=== PATIENT | female | born 1980 | race Caucasian/White ===

== ENCOUNTER 2016-08-26 15:13 | Emergency (ER) | payer MEDICAID ==
--- NOTE | 2016-08-26 16:15 | EDM.PDOC ---
ED HPI Trauma - General Chief Complaint: Lower Extremity Injury/Pain Stated Complaint: RT FOOT AND ANKLE INJURY Time Seen by Provider: 08/26/16 15:40 Source: Reports: Patient History Limitations: Reports: No limitations - History of Present Illness INITIAL COMMENTS - FREE TEXT/NARRATIVE: 36 -year-old female presents for evaluation and treatment of entry to the right ankle. Patient reports that she was mowing the lawn. She states that she fell onto some uneven surface, inverting her right ankle. She states that she was attempting to avoid injury to her right knee. Reports that she recently had hardware placed to the right knee a few weeks ago. She is currently complaining of pain to the right lateral knee, pain to the right lateral ankle and swelling to the right lateral ankle. She has been unable to bear weight on the leg since the incident. She reports some tingling to the leg. Denies any numbness. She's also noticed some swelling to the right lateral ankle. No treatment prior to arrival in the ER. Occurred When: this morning Occurred Where: home Method of Injury: fall Pain/Injury Location: Reports: lower extremity, right Allergies/ADRs: Allergies iodine Allergy (Verified 08/26/16 15:47) Blisters Penicillins Allergy (Verified 08/26/16 15:47) Hives Sulfa (Sulfonamide Antibiotics) Allergy (Verified 08/26/16 15:47) Rash codeine Adverse Reaction (Verified 08/26/16 15:47) Nausea morphine Adverse Reaction (Verified 08/26/16 15:47) Hallucinations Home Medications: Ambulatory Orders Cyclobenzaprine [Flexeril] 10 mg PO BEDTIME 05/15/16 [Confirmed 05/24/16] FLUoxetine [PROzac] 40 mg PO DAILY 05/15/16 [Confirmed 05/24/16] Gabapentin [Neurontin] 300 mg PO TID 05/15/16 [Confirmed 05/24/16] LORazepam 0.5 mg PO BEDTIME 05/15/16 [Confirmed 05/24/16] Magnesium Oxide [Magnesium] 400 mg PO DAILY 05/15/16 [Confirmed 05/24/16] busPIRone [Buspar] 15 mg PO BID 05/15/16 [Confirmed 05/24/16] Hydrocodone/Acetaminophen [[place] 5-325] 1 - 2 tab PO Q4H PRN #0 05/17/16 [ Confirmed 05/24/16] Ibuprofen [IJD: Ibuprofen] 200 - 600 mg PO Q6H PRN #0 tablet 05/17/16 [ Confirmed 05/24/16] Ondansetron [Zofran ODT] 4 mg PO Q6H PRN #0 05/17/16 [Confirmed 05/24/16] Acetaminophen [Tylenol] 650 mg PO Q4H PRN #0 tablet 05/28/16 Cephalexin [Keflex] 500 mg PO Q6HR #28 cap 05/28/16 Estrogens, Conjugated [Premarin] 0.625 mg PO DAILY #90 tablet 05/28/16 Past Medical History HEENT History: Reports: Impaired vision Cardiovascular History: Reports: None Respiratory History: Reports: Asthma Gastrointestinal History: Reports: Other (see below) Other Gastrointestinal History: cyst removed from gallbladder Genitourinary History: Reports: Renal calculus Other Genitourinary History: bilateral kidney stones, pelvic pain COMM[employer]CIAL [employer] AGENT History: Reports: Other (see below) Other OB/BYN History: left ovarian cyst, HSIL, HPV Musculoskeletal History: Reports: Osteoarthritis Neurological History: Reports: None Psychiatric History: Reports: Anxiety, Depression Endocrine/Metabolic History: Reports: Other (see below) Other Endocrine/Metabolic History: hair loss Hematologic History: Reports: None Immunologic History: Reports: None Oncologic (Cancer) History: Reports: None Other Dermatologic History: hair loss - Past Surgical History HEENT Surgical History: Reports: Oral surgery, Other (see below) Other HEENT Surgeries/Procedures: wisdom teeth GI Surgical History: Reports: Colonoscopy Female Surgical History: Reports: Hysterectomy, Lithotripsy/ESWL, Tubal ligation Musculoskeletal Surgical History: Reports: Other (see below) Other Musculoskeletal Surgeries/Procedures:: left ankle/foot surgery and right knee surgery Social & Family History - Family History Family Medical History: Noncontributory - Tobacco Use Smoking Status *Q: Never Smoker Used Tobacco, but Quit: Yes Month Tobacco Last Used: unknown Second Hand Smoke Exposure: No - Caffeine Use Caffeine Use: Reports: None - Alcohol Use Days Per Week of Alcohol Use: 0 - Recreational Drug Use Recreational Drug Use: No Drug Use in Last 12 Months: No - Living Situation & Occupation Living situation: Reports: with significant other, with family Occupation: employed Review of Systems - Review of Systems Review Of Systems: See Below Musculoskeletal: Reports: leg pain (right lateral knee and right lateral ankle) , foot pain (dorsal foot), joint swelling (right lateral ankle) Skin: Denies: wound Neurological: Reports: Tingling (right lower leg), Difficulty Walking (unable to bear weight due to pain). Denies: Numbness Trauma Exam - Physical Exam Exam: See Below Exam Limited By: No limitations General Appearance: Reports: alert, WD/WN, no apparent distress Respiratory Exam: Reports: no respiratory distress Cardiovascular: Reports: normal peripheral pulses (2+ dorsalis pedis and posterior tibialis pulses ), regular rate, rhythm Extremities: Reports: joint effusion (right lateral ankle distal to the right malleolus), pain with movement (unable to flex, extend, invert or phuong right ankle due to pain; unable to flex knee due to pain), tenderness (right lateral distal malleolus; dorsal right foot; right lateral knee), unable to bear weight Neurologic: Reports: alert, normal mood/affect Skin: Reports: Normal color, Warm/dry. Denies: Ecchymosis Course - Vital Signs Last Recorded V/S: Last Vital Signs Temp Pulse 79 08/26/16 15:45 Resp BP Pulse Ox 100 08/26/16 15:45 - Orders/Labs/Meds Meds: Medications Discontinued Medications Generic Name Dose Route Start Last Admin Trade Name [place] PRN Reason Stop Dose Admin Hydrocodone Bitart/Acetaminophen 1 tab 08/26/16 17:03 08/26/16 17:30 [place] 325-5 Mg PO 08/26/16 17:04 1 tab ONETIME ONE Administration - Radiology Interpretation Free Text/Narrative:: Xray of the right knee shows hardware in place without evidence of shift. No acute fractures or dislocations Xray of the right ankle shows later soft tissue swelling to the right lateral malleolus. No acute fractures or dislocations Xray of the right foot shows no acute fractures or dislocations. - Re-Assessments/Exams Free Text/Narrative Re-Assessment/Exam: 08/26/16 17:06 Patient reports that pain is worsening. Will give one [place] here in the ED. I reviewed the x-ray results with the patient. She has crutches at home. She should utilize these. Discharge instructions as documented. Departure - Departure Time of Disposition: 17:07 Disposition: Home, Self-Care 01 Condition: fair Clinical Impression: Right ankle sprain Instructions: Ankle Sprain, [id number] Referrals: Peggy Smith NP [Primary Care Provider] - Forms: ED Department Discharge Additional Instructions: Prescription for [place] 5/325#10 given to estimate. You were given medication in the ER that can affect your ability to drive and operate machinery. No driving or operating machinery within 12 hours of taking prescription narcotic pain medication. Recommend [id number] ibuprofen for pain. may take one [place] every 4-6 hours as needed for severe pain. [place] can be habit-forming, I recommend you take as few of these as needed to control your pain. No driving or operating machinery within 12 hours of taking the [place]. Use the crutches you have at home. Rapid ankle and an Ziyad bandage to help with swelling. Ice the ankle or 4 times a day for 10 or 15 minutes. Elevate the leg as much as you are able to. Follow-up with your primary care provider the end of this week or next week for a recheck. Please return to the ER should your symptoms change or worsen.
[2016-08-26] MEDS ORDERED: Acetaminophen/HYDROcodone 325-5 MG Tab PO ONE (17:03)
--- NOTE | 2016-08-27 10:34 | CR ---
Right ankle: Four views of the right ankle were obtained. Calcaneal spurs are again seen. Soft tissue swelling is noted. Ankle mortise is symmetric. No acute fracture or other bony abnormality is seen. Impression: 1. Soft tissue swelling. Incidental calcaneal spurs. 2. No acute bony abnormality is identified on right ankle exam. Diagnostic code #2
--- NOTE | 2016-08-27 10:34 | CR ---
Right foot: Four views of the right foot were obtained. Comparison: No previous foot exam. Plantar spur is seen. Small spur is noted at the attachment of the Achilles tendon to the calcaneus. Joint spaces within the right foot are preserved. No acute fracture or other bony abnormality is seen. Impression: 1. Incidental findings, nothing acute is appreciated on right foot study. Diagnostic code #2
--- NOTE | 2016-08-27 10:34 | CR ---
Right knee: Four views of the right knee were obtained. Comparison: Previous right knee study of 07/09/15. Findings: Two screws are seen within the proximal tibia which are an interval change from prior study. Minimal medial joint space narrowing is seen also appearing as an interval change from prior exam. Lateral joint space is preserved. No fracture or other bony abnormality is seen. Impression: 1. Nothing acute is seen on four-view right knee study. Other findings as noted above which are an interval change from previous exam. Diagnostic code #2
== END 2016-08-26 17:36 | disposition home or self-care (01) ==
LOC: JD.ED 15:13
DX: S93.401A Sprain of unspecified ligament of right ankle, initial encounter (principal); J45.909 Unspecified asthma, uncomplicated; F41.8 Other specified anxiety disorders; Z98.890 Other specified postprocedural states; Z90.710 Acquired absence of both cervix and uterus; Z88.0 Allergy status to penicillin; Z87.891 Personal history of nicotine dependence; Z88.2 Allergy status to sulfonamides; Z88.5 Allergy status to narcotic agent; Z88.8 Allergy status to other drugs, medicaments and biological substances; Z79.899 Other long term (current) drug therapy; X50.1XXA Overexertion from prolonged static or awkward postures, initial encounter; Y93.89 Activity, other specified
CPT/HCPCS: 73564; 73610; 73630; 99283; A9270